=== PATIENT | male | born 1970 | race Caucasian/White ===

== ENCOUNTER 2022-08-07 00:17 | Day surgery (SDC) | payer OTHER, SELFPAY ==
[2022-07-22 14:53] VITALS: BMI 24.1
[2022-08-07 09:52] VITALS: BP 122/62; PULSE 48; RESP 20; TEMP 36.2; O2SAT 100; BMI 23.8
[2022-08-07] MEDS: LACTATED RINGERS 1,000 ML 150 ML IV CONT (10:03)
--- NOTE | 2022-08-07 10:18 | P.PNAN_ITS ---
Anes - Initial Pre Proc Eval Procedure: Operation Date: 08/07/22 11:00 Proposed Procedures p Esophagogastroduodenoscopy & Screening Colonoscopy - Santosh Calderon MD Date/Time: 08/07/22 10:18 Surgeon: Santosh Calderon MD Pre Op Diagnosis: neoplasm screening, GERD Patient Data Age: 51 Gender: M Height: 1.85 m Weight: 82.1 kg Last Vital Signs Temp 97.1 F L 08/07/22 09:52 Pulse 48 L 08/07/22 09:52 Resp 20 08/07/22 09:52 BP 122/62 08/07/22 09:52 Pulse Ox 100 08/07/22 09:52 O2 Del Method Room Air 08/07/22 09:52 Allergies Allergy/AdvReac Type Severity Reaction Status Date / Time No Known Allergies Allergy Verified 07/22/22 14:52 Home Medications Medication Instructions Recorded Confirmed Type pantoprazole 40 mg tablet,delayed 40 mg PO DAILY PRN Indigestion 06/24/22 08/07/22 History release Patient hx anesthesia problems: none Family hx anesthesia problems: none Results Review: All pre-operative results and documents have been reviewed as part of the pre- operative evaluation. [facility] Social History Social History Smoking status: Never smoker Alcohol intake: current Drinks per week: 1 Substance use: never Substance use type: does not use Living arrangements: with family Spiritual care concerns: No Anes - Eval Final PreProcedure Day of Procedure 08/07/22 10:18 Patient weight: normal Heart: regular rate and rhythm Lungs: clear to auscultation Airway: Mallampati scale class II Neurological: alert and oriented Last oral intake: >/= 8 hours ASA classification: II Emergent: no Anesthetic plan: proceed Anesthesia type and monitoring: general GIVS and standard monitoring Results Review: All pre-operative results and documents have been reviewed as part of the pre- operative evaluation. Informed Consent: The patient's anesthetic plan and its attendant risks and benefits were discussed with the patient/family/POA. Questions were solicited and answers provided to the satisfaction of the patient/family/POA.
--- NOTE | 2022-08-07 10:34 | P.HP_ITS ---
H&P: HPI History of Present Illness Date/Time: 08/07/22 10:34 Chief Complaint: Neoplasia screening and dysphagia. Narrative: This is a 51-year-old white male patient presents for screening colonoscopy. Patient's current weight appetite and bowel movements are normal. Patient denies abdominal pain. He has had no bleeding. Family history noncontributory. Patient also complains of dysphagia he states that occasionally solid food will catch in mid substernal portion of the chest. He states several years ago had an EGD which was unremarkable no dilatation was performed symptoms have persisted. Patient states he takes pantoprazole perhaps twice a week. If he stops this medicine he begins to notice the symptoms intensified. Patient presents today for EGD to evaluate for esophageal swallowing difficulties. Review of Systems Review of Systems: Review of systems noncontributory. [facility] Social History Social History Smoking status: Never smoker Alcohol intake: current Drinks per week: 1 Substance use: never Substance use type: does not use Living arrangements: with family Spiritual care concerns: No Meds Home Medications and Allergies Home Medications Medication Instructions Recorded Confirmed Type pantoprazole 40 mg tablet,delayed 40 mg PO DAILY PRN Indigestion 06/24/22 08/07/22 History release Allergies Allergy/AdvReac Type Severity Reaction Status Date / Time No Known Allergies Allergy Verified 07/22/22 14:52 Vital Signs Vital Signs - 24 hr 08/07/22 09:52 Temperature 97.1 F L Pulse Rate 48 L Respiratory Rate 20 Blood Pressure 122/62 Pulse Oximetry 100 Oxygen Delivery Room Air Exam Narrative: Physical exam reveals patient to be alert. Vital signs stable. HEENT exam is unremarkable. Patient is anicteric. Lungs are clear to auscultation and percussion. Heart is without murmur or extra sounds. Abdomen bowel sounds present soft nontender with no organomegaly. Digital external rectal exam is normal. Assessment and Plan Assessment and plan (1) Dysphagia: Code(s): R13.10 - Dysphagia, unspecified Status: Acute Assessment and Plan: Patient complains of intermittent difficulty swallowing solid foods these appear to catch and mid substernal portion the chest. Plan is for EGD to assess more thoroughly. Patient currently on pantoprazole 2 times a week. Adjusting this dose may be prudent pending results of endoscopy. (2) Encounter for screening colonoscopy: Code(s): Z12.11 - Encounter for screening for malignant neoplasm of colon Status: Acute Assessment and Plan: Patient presents for screening colonoscopy. Appears to be at average risk for colon polyps. Further recommendations will be given after endoscopy.
--- NOTE | 2022-08-07 11:02 | SUR.OPER ---
EGD COMPLETED AT 1102, COLON STARTED AT 1109
[2022-08-07 11:19] VITALS: BP 100/53; PULSE 46; RESP 15; O2SAT 97
[2022-08-07 11:29] VITALS: BP 101/57; PULSE 47; RESP 16; O2SAT 98
[2022-08-07 11:39] VITALS: BP 103/53; PULSE 44; RESP 23; O2SAT 99
== END 2022-08-07 12:02 | disposition home or self-care (01) ==
PROVIDERS: PCP Family Medicine; Visit Provider Internal Medicine Gastroenterology
PROC: 0DJ08ZZ Inspection of Upper Intestinal Tract, Via Natural or Artificial Opening Endoscopic (ICD-10-PCS; CPT 43235; principal; 2022-08-07 11:00)
DX: Z12.11 Encounter for screening for malignant neoplasm of colon (principal); Q39.4 Esophageal web; K64.8 Other hemorrhoids; R13.10 Dysphagia, unspecified
CPT/HCPCS: 45378; 43450; 43235; J2704; J7120